=== PATIENT | female | born 1965 | race Hispanic/Latino ===

== ENCOUNTER 2019-02-07 12:46 | Inpatient (IN) | payer MEDICARE ==
[~2019-02-07] VITALS: Ht 165.1 cm; Wt 156.0 kg
[~2019-02-07 12:46] MED LIST: PANT40TA25 PO; SUCR1TAB28 PO
[2019-02-07 13:23] LABS: BASOPHILS % (AUTO) 0.5 % (0.0-5.0); HEMATOCRIT 35.5 % (36-48); LYMPHOCYTES % (AUTO) 28.3 % (21.0-51.0); MEAN CORPUSCULAR HEMOGLOBIN 30.8 pg (27.0-33.0); MEAN CORPUSCULAR VOLUME 90.4 fL (79-99); MONOCYTES % (AUTO) 4.4 % (3.0-13.0); NEUTROPHILS % (AUTO) 65.8 % (40.0-77.0); PLATELET COUNT (AUTO) 139 K/uL (130-400); RED BLOOD CELL COUNT(AUTO) 3.92 MIL/uL (4.00-5.50); RED CELL DISTRIBUTION WIDTH 14.2 % (11.0-15.5); WHITE BLOOD COUNT (AUTO) 7.5 K/uL (4.8-10.8)
[2019-02-07 13:36] LABS: CREATININE 0.7 mg/dL (0.5-1.5); POTASSIUM 4.5 mmol/L (3.5-5.1)
[2019-02-07 13:40] LABS: ALBUMIN 2.7 g/dL (3.5-5.0); BILIRUBIN,TOTAL 0.4 mg/dL (0.2-1.0); INR 0.96 (0.85-1.15); PARTIAL THROMBOPLASTIN TIME 27.3 SEC (26.3-35.5); PROTHROMBIN TIME 10.1 SEC (9.6-11.6); TOTAL PROTEIN, SERUM 6.9 g/dL (6.0-8.3)
[2019-02-07 13:55] LABS: BILIRUBIN,URINE Negative (NEGATIVE); COLOR,URINE Yellow (YELLOW); GLUCOSE, URINE (UA) Negative (NEGATIVE); KETONES,URINE Negative (NEGATIVE); LEUKOCYTE ESTERASE ,URINE Moderate (NEGATIVE); NITRATE,URINE Positive (NEGATIVE); OCCULT BLOOD,URINE Nonhemolyzed Trace (NEGATIVE); PH,URINE 6.5 (5.0-8.0); PROTEIN,URINE Negative (NEGATIVE)
[2019-02-07 13:58] LABS: APPEARANCE,URINE SLIGHTLY CLOUDY (CLEAR)
[2019-02-07 14:13] LABS: BACTERIA,URINE Moderate /HPF (None Seen)
[2019-02-07 14:15] LABS: RBC,URINE 0-1 /HPF (0-1)
[2019-02-07 16:29] LABS: AMPHET/METH SCREEN,URINE NEGATIVE (NEGATIVE); BARBITURATE SCREEN, URINE NEGATIVE (NEGATIVE); BENZODIAZEPINES SCREEN,URINE NEGATIVE (NEGATIVE); CANNABINOID SCREEN,URINE NEGATIVE (NEGATIVE); COCAINE SCREEN,URINE NEGATIVE (NEGATIVE); OPIATE SCREEN,URINE NEGATIVE (NEGATIVE); PHENCYCLIDINE SCREEN,URINE NEGATIVE (NEGATIVE)
[2019-02-07] MEDS ORDERED: CEFTRIAXONE SODIUM 1 GM ONE (16:52)
[2019-02-07 18:05] VITALS: BP 128/72
[2019-02-07] MEDS ORDERED: METF-444 PO (19:03)
[2019-02-07 19:10] LABS: HEMATOCRIT 32.4 % (36-48)
[2019-02-07] MEDS: PANTOPRAZOLE 40 MG/VIAL IVP SCH (19:51)
[2019-02-07 20:00] VITALS: BP 128/87
--- NOTE | 2019-02-07 20:07 | NUR ---
Paged Hospitalist on-call because pt has pain in the legs.
--- NOTE | 2019-02-07 20:12 | NUR ---
Spoke with Dr. Brown because pt has pain in the legs. Dr. Brown gave the order for 30mg IV toradol times one time dose.
--- NOTE | 2019-02-07 20:50 | NUR ---
Spoke with Dr. Mccarty Informed him that Dr. Brown had ordered toradol for the pt's pain in the legs. Stated to discontinue the toradol and instead put in the order for tylenol 1g q6h for PRN pain 1-5, tramadol 50mg q8h PRN pain 6-10, to start the NS at 100ml/hr for the pt.
[2019-02-07] MEDS ORDERED: KETOROLAC TROMETHAMINE 30MG/ML IM SCH (21:00)
[2019-02-07] MEDS ORDERED: ACETAMINOPHEN 325 MG TAB PO PRN (21:15)
[2019-02-07] MEDS: TRAMADOL HCL 50 MG TABLET PO PRN (22:13)
[2019-02-07] MEDS: SODIUM CHLORIDE 0.9% 1000ML 1,000 ML IV SCH (22:14)
[2019-02-08] VITALS (18 sets, daily range): BP systolic 119–166; BP diastolic 60–95
[2019-02-08 02:26] LABS: HEMATOCRIT 36.4 % (36-48)
[2019-02-08 05:51] LABS: MEAN CORPUSCULAR HEMOGLOBIN 30.4 pg (27.0-33.0); MEAN CORPUSCULAR HGB CONC 33.2 g/dL (32.0-36.0); MEAN CORPUSCULAR VOLUME 91.4 fL (79-99); PLATELET COUNT (AUTO) 189 K/uL (130-400); RED BLOOD CELL COUNT(AUTO) 4.05 MIL/uL (4.00-5.50); RED CELL DISTRIBUTION WIDTH 14.6 % (11.0-15.5); WHITE BLOOD COUNT (AUTO) 9.4 K/uL (4.8-10.8)
[2019-02-08 06:15] LABS: CREATININE 0.9 mg/dL (0.5-1.5); POTASSIUM 3.5 mmol/L (3.5-5.1)
[2019-02-08] MEDS: SODIUM CHLORIDE 0.9% 1000ML 1,000 ML IV SCH ×2 (06:36→17:29)
[2019-02-08 07:31] LABS: EOSINOPHILS % (MANUAL) 1 % (1-6); LYMPHOCYTES % (MANUAL) 28 % (22-44); MAN.DIFF COMMENT-IMPRESSION MANUAL DIFFERENTIAL; MONOCYTES % (MANUAL) 7 % (2-9); PLATELET MORPHOLOGY COMMENT ADEQUATE; REACTIVE LYMPHOCYTES 2 % (0-0); SEGMENTED NEUTROPHILS % 62 % (40-70)
[2019-02-08] MEDS: PANTOPRAZOLE 40 MG/VIAL IVP SCH ×2 (08:51→19:48)
[2019-02-08] MEDS: CEFTRIAXONE SODIUM 1 GM IVP SCH (08:51)
--- NOTE | 2019-02-08 09:50 | NUR ---
Pt.taken via hospital bed for EGD to be done by Dr. Pizano. Left in stable condition.
[2019-02-08] MEDS ORDERED: PROPOFOL 10 MG/ML 20ML VIAL IV ONE (13:15)
--- NOTE | 2019-02-08 14:10 | NUR ---
Pt. back in room s/p EGD with Dr. Pizano, findings: 1 non-bleeding duodenal ulcer, gastritis, biopsy done. Pt. to have a colonoscopy with MAC tomorrow. Pt. in stable condition, awake with no c/o. Dtr. in room with pt.
[2019-02-08] MEDS ORDERED: LACTULOSE 20 GM/30 ML UDCUP PO SCH (15:00)
[2019-02-08] MEDS: LACTULOSE 20 GM/30 ML UDCUP PO SCH (15:15)
--- NOTE | 2019-02-08 15:50 | NUR ---
cm note met with patient states is independent with adls and self care, ambulates per self. no dme. is in process of reapplying for provider services. states dc plan is back to same home setting at time of dc. pt drives. Addendum: 02/08/19 at 1553 by JANIS INTERIANO CM Amended: Links added.
[2019-02-08] MEDS ORDERED: MAGNESIUM CITRATE 296 ML SOLUTION PO ONE (16:00)
[2019-02-08] MEDS ORDERED: PEG 3350/NA SULF,BICARB,CL/KCL 4000 ML SOLN PO ONE (17:00)
[2019-02-08] MEDS: BISACODYL 5 MG TABLET.DR PO SCH (17:24)
[2019-02-08] MEDS: TRAMADOL HCL 50 MG TABLET PO PRN (19:49)
[2019-02-09] VITALS (21 sets, daily range): BP systolic 77–158; BP diastolic 35–89
[2019-02-09] MEDS: SODIUM CHLORIDE 0.9% 1000ML 1,000 ML IV SCH ×3 (03:15→23:15)
[2019-02-09] MEDS: PANTOPRAZOLE 40 MG/VIAL IVP SCH ×2 (08:33→21:47)
[2019-02-09] MEDS: CEFTRIAXONE SODIUM 1 GM IVP SCH (08:33)
[2019-02-09] MEDS: INSULIN HUMULIN R 100 UNIT/ML 3ML SQ SCH ×3 (11:30→21:00)
[2019-02-09] MEDS: LACTULOSE 20 GM/30 ML UDCUP PO SCH (14:08)
[2019-02-09] MEDS: BISACODYL 5 MG TABLET.DR PO SCH (18:00)
[2019-02-10] VITALS (12 sets, daily range): BP systolic 112–148; BP diastolic 61–85
[2019-02-10] MEDS ORDERED: ACETAMINOPHEN EXTRA STRENGTH 500 MG TABLET ONE (00:07)
[2019-02-10 05:46] LABS: BASOPHILS % (AUTO) 0.6 % (0.0-5.0); EOSINOPHILS % (AUTO) 1.9 % (0.0-8.0); HEMATOCRIT 32.3 % (36-48); LYMPHOCYTES % (AUTO) 40.1 % (21.0-51.0); MEAN CORPUSCULAR HEMOGLOBIN 30.5 pg (27.0-33.0); MEAN CORPUSCULAR HGB CONC 33.2 g/dL (32.0-36.0); MEAN CORPUSCULAR VOLUME 91.7 fL (79-99); MONOCYTES % (AUTO) 5.9 % (3.0-13.0); NEUTROPHILS % (AUTO) 51.5 % (40.0-77.0); PLATELET COUNT (AUTO) 152 K/uL (130-400); RED BLOOD CELL COUNT(AUTO) 3.52 MIL/uL (4.00-5.50); RED CELL DISTRIBUTION WIDTH 14.1 % (11.0-15.5); WHITE BLOOD COUNT (AUTO) 6.3 K/uL (4.8-10.8)
[2019-02-10 05:56] LABS: CREATININE 0.8 mg/dL (0.5-1.5); POTASSIUM 3.8 mmol/L (3.5-5.1)
[2019-02-10] MEDS: INSULIN HUMULIN R 100 UNIT/ML 3ML SQ SCH ×4 (07:05→21:00)
[2019-02-10] MEDS: LEVOFLOXACIN 500 MG/D5W 100 ML 100 ML IV SCH (09:47)
[2019-02-10] MEDS: PANTOPRAZOLE 40 MG/VIAL IVP SCH ×2 (09:47→21:54)
[2019-02-10] MEDS: SODIUM CHLORIDE 0.9% 1000ML 1,000 ML IV SCH ×2 (09:47→21:54)
[2019-02-10] MEDS ORDERED: PROPOFOL 10 MG/ML 20ML VIAL IV ONE ×2 (14:55)
[2019-02-10] MEDS: LACTULOSE 20 GM/30 ML UDCUP PO SCH (15:05)
[2019-02-10] MEDS: BISACODYL 5 MG TABLET.DR PO SCH (16:44)
[2019-02-11 04:19] VITALS: BP 127/78
[2019-02-11 04:35] LABS: BASOPHILS % (AUTO) 0.4 % (0.0-5.0); EOSINOPHILS % (AUTO) 1.9 % (0.0-8.0); HEMATOCRIT 33.3 % (36-48); LYMPHOCYTES % (AUTO) 34.8 % (21.0-51.0); MEAN CORPUSCULAR HEMOGLOBIN 31.4 pg (27.0-33.0); MEAN CORPUSCULAR HGB CONC 34.3 g/dL (32.0-36.0); MEAN CORPUSCULAR VOLUME 91.5 fL (79-99); MONOCYTES % (AUTO) 5.9 % (3.0-13.0); NUCLEATED RED BLOOD CELLS 0.1 % (0.0-0.19); PLATELET COUNT (AUTO) 138 K/uL (130-400); RED BLOOD CELL COUNT(AUTO) 3.64 MIL/uL (4.00-5.50); RED CELL DISTRIBUTION WIDTH 13.9 % (11.0-15.5); WHITE BLOOD COUNT (AUTO) 7.2 K/uL (4.8-10.8)
[2019-02-11 04:51] LABS: CREATININE 0.7 mg/dL (0.5-1.5); POTASSIUM 3.6 mmol/L (3.5-5.1)
[2019-02-11] MEDS: SODIUM CHLORIDE 0.9% 1000ML 1,000 ML IV SCH (05:40)
[2019-02-11] MEDS: INSULIN HUMULIN R 100 UNIT/ML 3ML SQ SCH (05:40)
[2019-02-11 08:00] VITALS: BP 128/63
[2019-02-11] MEDS ORDERED: PANTOPRAZOLE SODIUM 40 MG TABLET.DR PO SCH (09:00)
[2019-02-11] MEDS: LEVOFLOXACIN 500 MG/D5W 100 ML 100 ML IV SCH (09:17)
[2019-02-11] MEDS ORDERED: PANT40TA PO (09:20)
[2019-02-11] MEDS ORDERED: LEVO500T2 PO (09:22)
[2019-02-11 11:00] VITALS: BP 142/75
== END 2019-02-11 12:15 | disposition home or self-care (01) | DRG 377 ==
LOC: EDH 12:46 → EDHIP 16:10 → OBSVTOIN 16:10 → 3AH 18:13
PROVIDERS: ADMIT Family Medicine; ATTEND Family Medicine
PROC: 0DB48ZX Excision of Esophagogastric Junction, Via Natural or Artificial Opening Endoscopic, Diagnostic (ICD-10-PCS; 2019-02-08)
PROC: 0DB68ZX Excision of Stomach, Via Natural or Artificial Opening Endoscopic, Diagnostic (ICD-10-PCS; 2019-02-08)
PROC: 0DBA8ZX Excision of Jejunum, Via Natural or Artificial Opening Endoscopic, Diagnostic (ICD-10-PCS; 2019-02-08)
PROC: 0DJD8ZZ Inspection of Lower Intestinal Tract, Via Natural or Artificial Opening Endoscopic (ICD-10-PCS; 2019-02-09)
PROC: 0DJD8ZZ Inspection of Lower Intestinal Tract, Via Natural or Artificial Opening Endoscopic (ICD-10-PCS; principal; 2019-02-10)
DX: K29.01 Acute gastritis with bleeding (principal); E43 Unspecified severe protein-calorie malnutrition; Z68.43 Body mass index [BMI] 50.0-59.9, adult; N39.0 Urinary tract infection, site not specified; C18.9 Malignant neoplasm of colon, unspecified; D62 Acute posthemorrhagic anemia; K28.4 Chronic or unspecified gastrojejunal ulcer with hemorrhage; K57.31 Diverticulosis of large intestine without perforation or abscess with bleeding; K29.81 Duodenitis with bleeding; B96.20 Unspecified Escherichia coli [E. coli] as the cause of diseases classified elsewhere; E11.9 Type 2 diabetes mellitus without complications; K64.0 First degree hemorrhoids; K21.0 Gastro-esophageal reflux disease with esophagitis; E66.01 Morbid (severe) obesity due to excess calories; I10 Essential (primary) hypertension; Z88.0 Allergy status to penicillin; Z98.84 Bariatric surgery status; Z90.710 Acquired absence of both cervix and uterus; Z83.3 Family history of diabetes mellitus; Z82.49 Family history of ischemic heart disease and other diseases of the circulatory system; Z82.3 Family history of stroke; Z80.3 Family history of malignant neoplasm of breast
CPT/HCPCS: 36415; 43239; 45378; 80048; 80053; 80305; 81001; 82270; 82948; 83690; 85014; 85018; 85025; 85610; 85730; 86677; 86850; 86900; 86901; 87077; 87088; 87186; 87338; 88305; 99152; 99153; A4218; C9113; G0378; J0696; J1956; J2704; J7030

== ENCOUNTER 2019-06-24 18:24 | Emergency (ER) | payer OTHER, MEDICARE ==
[~2019-06-24 18:24] MED LIST changes: +LEVO500T2 PO; +METF-444 PO; +PANT40TA PO
[2019-06-24 19:01] LABS: APPEARANCE,URINE Turbid (CLEAR); BILIRUBIN,URINE Negative (NEGATIVE); COLOR,URINE Yellow (YELLOW); GLUCOSE, URINE (UA) Negative (NEGATIVE); KETONES,URINE Negative (NEGATIVE); LEUKOCYTE ESTERASE ,URINE Large (NEGATIVE); NITRATE,URINE Positive (NEGATIVE); OCCULT BLOOD,URINE Moderate (NEGATIVE); PROTEIN,URINE POS 1+ mg/dL (NEGATIVE)
[2019-06-24 19:14] LABS: BACTERIA,URINE Moderate /HPF (None Seen); MUCUS,URINE Moderate LPF (None Seen)
[2019-06-24] MEDS ORDERED: SODIUM CHLORIDE 0.9% 1000ML 1,000 ML IV ONE (19:24)
[2019-06-24] MEDS ORDERED: PHENAZOPYRIDINE HCL 200 MG TABLET ONE (19:25)
[2019-06-24 19:30] LABS: BASOPHILS % (AUTO) 0.4 % (0.0-5.0); EOSINOPHILS % (AUTO) 1.3 % (0.0-8.0); HEMATOCRIT 38.8 % (36-48); LYMPHOCYTES % (AUTO) 30.3 % (21.0-51.0); MEAN CORPUSCULAR HGB CONC 33.6 g/dL (32.0-36.0); MEAN CORPUSCULAR VOLUME 89.2 fL (79-99); PLATELET COUNT (AUTO) 160 K/uL (130-400); RED BLOOD CELL COUNT(AUTO) 4.35 MIL/uL (4.00-5.50); RED CELL DISTRIBUTION WIDTH 15.7 % (11.0-15.5); WHITE BLOOD COUNT (AUTO) 8.4 K/uL (4.8-10.8)
[2019-06-24 19:38] LABS: CREATININE 1.1 mg/dL (0.5-1.5); POTASSIUM 3.6 mmol/L (3.5-5.1)
[2019-06-24 19:43] LABS: ALBUMIN 2.9 g/dL (3.5-5.0); BILIRUBIN,DIRECT 0.1 mg/dL (0.0-0.3); BILIRUBIN,TOTAL 0.3 mg/dL (0.2-1.0); TOTAL PROTEIN, SERUM 7.7 g/dL (6.0-8.3)
== END 2019-06-24 21:07 | disposition home or self-care (01) ==
LOC: EDH 18:24
DX: N30.00 Acute cystitis without hematuria (principal); E11.9 Type 2 diabetes mellitus without complications; I10 Essential (primary) hypertension; E66.01 Morbid (severe) obesity due to excess calories; Z90.710 Acquired absence of both cervix and uterus; Z90.49 Acquired absence of other specified parts of digestive tract; Z98.890 Other specified postprocedural states; Z98.84 Bariatric surgery status; Z68.43 Body mass index [BMI] 50.0-59.9, adult
CPT/HCPCS: 36415; 80048; 80076; 81001; 85025; 87040; 87077; 87088; 87186; 99284; J7030

== ENCOUNTER 2019-10-26 00:11 | Emergency (ER) | payer OTHER, MEDICARE ==
[2019-10-26] MEDS ORDERED: ALBUTEROL SULFATE 0.083% 2.5 MG/3 ML INH IH ONE ×3 (01:02→03:10)
[2019-10-26 01:13] LABS: BASOPHILS % (AUTO) 0.2 % (0.0-5.0); EOSINOPHILS % (AUTO) 1.7 % (0.0-8.0); HEMATOCRIT 41.5 % (36-48); LYMPHOCYTES % (AUTO) 47.9 % (21.0-51.0); MEAN CORPUSCULAR HEMOGLOBIN 29.2 pg (27.0-33.0); MEAN CORPUSCULAR HGB CONC 31.3 g/dL (32.0-36.0); MEAN CORPUSCULAR VOLUME 93.3 fL (79-99); MONOCYTES % (AUTO) 11.4 % (3.0-13.0); NEUTROPHILS % (AUTO) 38.4 % (40.0-77.0); PLATELET COUNT (AUTO) 135 K/uL (130-400); RED BLOOD CELL COUNT(AUTO) 4.45 MIL/uL (4.00-5.50); RED CELL DISTRIBUTION WIDTH 13.9 % (11.0-15.5); WHITE BLOOD COUNT (AUTO) 4.7 K/uL (4.8-10.8)
[2019-10-26] MEDS ORDERED: MAG HYDROX/AL HYDROX/SIMETH ES 30 ML SUSP UDCUP ONE (01:13)
[2019-10-26] MEDS ORDERED: LIDOCAINE HCL 2% VISCOUS 15 ML UDCUP ONE (01:13)
[2019-10-26 01:19] LABS: CREATININE 1.1 mg/dL (0.5-1.5); POTASSIUM 3.9 mmol/L (3.5-5.1)
[2019-10-26 01:23] LABS: ALBUMIN 2.5 g/dL (3.5-5.0); BILIRUBIN,TOTAL 0.2 mg/dL (0.2-1.0); PARTIAL THROMBOPLASTIN TIME 28.7 SEC (26.3-35.5); PROTHROMBIN TIME 10.5 SEC (9.6-11.6); TOTAL PROTEIN, SERUM 7.1 g/dL (6.0-8.3)
[2019-10-26] MEDS ORDERED: ACETAMINOPHEN 325 MG TAB ONE (01:48)
[2019-10-26] MEDS ORDERED: ACETAMINOPHEN EXTRA STRENGTH 500 MG TABLET ONE (01:48)
[2019-10-26] MEDS ORDERED: PREDNISONE 20 MG TABLET ONE (01:48)
[2019-10-26] MEDS ORDERED: KETOROLAC TROMETHAMINE 30MG/ML ONE (02:36)
[2019-10-26] MEDS ORDERED: OSELTAMIVIR PHOSPHATE 75 MG CAP ONE (03:47)
== END 2019-10-26 04:14 | disposition home or self-care (01) ==
LOC: EDH 00:11
DX: J11.1 Influenza due to unidentified influenza virus with other respiratory manifestations (principal); J45.901 Unspecified asthma with (acute) exacerbation; E11.9 Type 2 diabetes mellitus without complications; I10 Essential (primary) hypertension; Z90.710 Acquired absence of both cervix and uterus; Z90.49 Acquired absence of other specified parts of digestive tract; Z98.890 Other specified postprocedural states; Z88.0 Allergy status to penicillin
CPT/HCPCS: 36415; 71045; 80053; 84484; 85025; 85610; 85730; 87804 ×2; 93005; 94640 ×3; 96361; 96374; 99285; J1885

== ENCOUNTER 2021-03-14 16:11 | Emergency (ER) | payer OTHER, MEDICARE ==
[~2021-03-14] VITALS: Ht 165.1 cm; Wt 181.4 kg
[~2021-03-14 16:11] MED LIST changes: -PANT40TA25 PO; +PANT40TA55 PO
[2021-03-14] MEDS ORDERED: ONDANSETRON HCL 4 MG/2 ML VIAL IVP SCH (17:00)
[2021-03-14] MEDS ORDERED: FAMOTIDINE/PF 20 MG/2 ML VIAL IV SCH (17:00)
[2021-03-14] MEDS ORDERED: MAG HYDROX/AL HYDROX/SIMETH ES 30 ML SUSP UDCUP PO SCH (17:00)
[2021-03-14] MEDS ORDERED: LIDOCAINE HCL 2% VISCOUS 15 ML UDCUP PO SCH (17:00)
[2021-03-14 17:31] LABS: HEMATOCRIT 37.4 % (36-48); MEAN CORPUSCULAR HEMOGLOBIN 30.9 pg (27.0-33.0); MEAN CORPUSCULAR HGB CONC 32.9 g/dL (32.0-36.0); RED BLOOD CELL COUNT(AUTO) 3.98 MIL/uL (4.00-5.50); RED CELL DISTRIBUTION WIDTH 13.3 % (11.0-15.5); WHITE BLOOD COUNT (AUTO) 8.4 K/uL (4.8-10.8)
[2021-03-14 17:42] LABS: CREATININE 0.8 mg/dL (0.5-1.5); POTASSIUM 4.1 mmol/L (3.5-5.1)
[2021-03-14 17:47] LABS: ALBUMIN 2.8 g/dL (3.5-5.0); BILIRUBIN,TOTAL 0.2 mg/dL (0.2-1.0); TOTAL PROTEIN, SERUM 7.2 g/dL (6.0-8.3)
[2021-03-14 18:45] VITALS: BP 139/64
[2021-03-14 18:54] VITALS: BP 153/80
[2021-03-14 18:57] VITALS: BP 150/80
[2021-03-14 18:58] VITALS: BP 152/87
[2021-03-14 19:05] VITALS: BP 135/86
[2021-03-14] MEDS ORDERED: FAMO10VI2 IV (20:24)
[2021-03-14] MEDS ORDERED: DICY20TA2 PO (20:24)
[2021-03-14 20:25] VITALS: BP 139/86
== END 2021-03-14 20:37 | disposition home or self-care (01) ==
LOC: EDH 16:11
DX: K29.70 Gastritis, unspecified, without bleeding (principal); R73.9 Hyperglycemia, unspecified; E66.01 Morbid (severe) obesity due to excess calories; Z88.0 Allergy status to penicillin; Z79.899 Other long term (current) drug therapy; Z68.44 Body mass index [BMI] 60.0-69.9, adult
CPT/HCPCS: 36415; 74176; 80053; 83690; 85027; 96374; 96375; 99284; J2405; J3490

== ENCOUNTER 2021-03-21 08:40 | Day surgery (SDC) | payer OTHER, MEDICARE ==
[~2021-03-21] VITALS: Ht 165.1 cm; Wt 179.6 kg
[2021-03-21] VITALS (8 sets, daily range): BP systolic 95–135; BP diastolic 49–88
[~2021-03-21 08:40] MED LIST changes: -LEVO500T2 PO; -METF-444 PO; -PANT40TA PO; -PANT40TA55 PO; +SODIUM CHLORIDE 0.9% 1000ML 1,000 ML IV ONE; -SUCR1TAB28 PO
[2021-03-21] MEDS ORDERED: PROPOFOL 10 MG/ML 20ML VIAL IV ONE (10:16)
== END 2021-03-21 11:36 | disposition home or self-care (01) ==
LOC: ENDO 08:40 → DAH 08:40 → ENDO 11:36
PROVIDERS: ATTEND Internal Medicine Gastroenterology
DX: K92.1 Melena (principal); K52.9 Noninfective gastroenteritis and colitis, unspecified; K21.9 Gastro-esophageal reflux disease without esophagitis; Z20.822 Contact with and (suspected) exposure to COVID-19; K57.30 Diverticulosis of large intestine without perforation or abscess without bleeding; K31.89 Other diseases of stomach and duodenum; K22.8 Other specified diseases of esophagus; K63.89 Other specified diseases of intestine; I10 Essential (primary) hypertension; E11.51 Type 2 diabetes mellitus with diabetic peripheral angiopathy without gangrene; D64.9 Anemia, unspecified; E66.01 Morbid (severe) obesity due to excess calories; M19.90 Unspecified osteoarthritis, unspecified site; Z79.899 Other long term (current) drug therapy; Z88.0 Allergy status to penicillin; Z79.84 Long term (current) use of oral hypoglycemic drugs; Z98.890 Other specified postprocedural states; Z90.89 Acquired absence of other organs; Z90.710 Acquired absence of both cervix and uterus; Z90.49 Acquired absence of other specified parts of digestive tract; Z98.891 History of uterine scar from previous surgery; Z72.89 Other problems related to lifestyle; Z98.84 Bariatric surgery status; Z68.44 Body mass index [BMI] 60.0-69.9, adult
CPT/HCPCS: 43239; 45380; 82948 ×2; 87635; A4215 ×2; A4221; A4222; A4223; A4606; A4620; A4657 ×2; A4663; C9803; J2704; J7030

== ENCOUNTER 2021-08-12 17:24 | Emergency (ER) | payer OTHER, MEDICARE ==
[~2021-08-12] VITALS: Ht 165.1 cm; Wt 181.4 kg
[2021-08-12] MEDS ORDERED: HYDROCODONE/ACETAMINOPHEN 10/325 MG TAB PO ONE (18:00)
[2021-08-12] MEDS ORDERED: ACET-2247 PO (18:19)
[2021-08-12] MEDS ORDERED: LIDOP TP (18:19)
[2021-08-12] MEDS ORDERED: CEPHALEXIN 500 MG CAPSULE PO ONE (18:30)
[2021-08-12] MEDS ORDERED: CLINDAMYCIN 150 MG CAP PO ONE (18:30)
[2021-08-12 18:54] VITALS: BP 141/79
== END 2021-08-12 18:50 | disposition home or self-care (01) ==
LOC: EDH 17:24
DX: S80.11XA Contusion of right lower leg, initial encounter (principal); M79.661 Pain in right lower leg; L03.115 Cellulitis of right lower limb; E78.00 Pure hypercholesterolemia, unspecified; E66.01 Morbid (severe) obesity due to excess calories; Z88.0 Allergy status to penicillin; Z98.84 Bariatric surgery status; Z90.49 Acquired absence of other specified parts of digestive tract; Z68.44 Body mass index [BMI] 60.0-69.9, adult; W01.198A Fall on same level from slipping, tripping and stumbling with subsequent striking against other object, initial encounter; Y93.89 Activity, other specified; Y92.89 Other specified places as the place of occurrence of the external cause; Y99.8 Other external cause status
CPT/HCPCS: 76882

== ENCOUNTER 2022-11-20 16:51 | Emergency (ER) | payer OTHER, MEDICARE ==
[~2022-11-20] VITALS: Ht 165.1 cm; Wt 193.2 kg
[~2022-11-20 16:51] MED LIST changes: +ACET-2247 PO; +LIDOP TP; -SODIUM CHLORIDE 0.9% 1000ML 1,000 ML IV ONE
[2022-11-20 17:41] LABS: BASOPHILS % (AUTO) 0.3 % (0.0-5.0); EOSINOPHILS % (AUTO) 1.4 % (0.0-8.0); HEMATOCRIT 44.6 % (36-48); LYMPHOCYTES % (AUTO) 31.6 % (21.0-51.0); MEAN CORPUSCULAR HEMOGLOBIN 30.6 pg (27.0-33.0); MEAN CORPUSCULAR VOLUME 92.9 fL (79-99); MONOCYTES % (AUTO) 6.1 % (3.0-13.0); NEUTROPHILS % (AUTO) 60.2 % (40.0-77.0); PLATELET COUNT (AUTO) 148 K/uL (130-400); RED CELL DISTRIBUTION WIDTH 13.2 % (11.0-15.5); WHITE BLOOD COUNT (AUTO) 7.4 K/uL (4.8-10.8)
[2022-11-20 17:52] LABS: POTASSIUM 4.2 mmol/L (3.5-5.1)
[2022-11-20 17:59] LABS: APPEARANCE,URINE CLOUDY (CLEAR); BILIRUBIN,URINE NEGATIVE (NEGATIVE); COLOR,URINE YELLOW (YELLOW); GLUCOSE, URINE (UA) >=1000 mg/dL (NEGATIVE); KETONES,URINE 5 mg/dL (NEGATIVE); LEUKOCYTE ESTERASE ,URINE NEGATIVE Leu/uL (NEGATIVE); NITRATE,URINE NEGATIVE (NEGATIVE); OCCULT BLOOD,URINE NEGATIVE (NEGATIVE); PH,URINE 5.5 (5.0-8.0); PROTEIN,URINE 30 mg/dL (NEGATIVE); UROBILINOGEN,URINE 0.2 mg/dL (0.2-1.0)
[2022-11-20 17:59] LABS: ALBUMIN 2.8 g/dL (3.5-5.0); TOTAL PROTEIN, SERUM 7.5 g/dL (6.0-8.3)
[2022-11-20] MEDS ORDERED: 0.9%NACL 1000ML 2,000 ML IV ONE (18:00)
[2022-11-20 18:05] LABS: BACTERIA,URINE FEW /HPF (None Seen); MUCUS,URINE MOD LPF (None Seen); RBC,URINE 26-50 /HPF (0-1); SQUAMOUS EPITHELIAL CELL,UR MOD /HPF (0-2); YEAST,URINE BUDDING MOD /HPF (None Seen)
[2022-11-20 18:27] LABS: ABG BASE EXCESS 1.9 mmol/L (-2.0-3.0); ABG HCO3 27.1 mmol/L (21.0-28.0); ABG OXYGEN SATURATION 93.6 % (95.0-99.0); ABG PCO2 44 mmHg (32-45)
[2022-11-20] MEDS ORDERED: MAG/ALUM/SIMETH 30 ML UDCUP PO ONE (18:30)
[2022-11-20] MEDS ORDERED: LIDOCAINE HCL 2% VISCOUS 15 ML UDCUP PO ONE (18:30)
[2022-11-20] MEDS ORDERED: FAMO20TA8 PO (20:26)
[2022-11-20] MEDS ORDERED: ONDA4TAB10 PO (20:26)
[2022-11-20 20:40] VITALS: BP 148/80
== END 2022-11-20 20:51 | disposition home or self-care (01) ==
LOC: EDH 16:51
DX: R07.89 Other chest pain (principal); K29.70 Gastritis, unspecified, without bleeding; R11.2 Nausea with vomiting, unspecified; E11.9 Type 2 diabetes mellitus without complications; E78.00 Pure hypercholesterolemia, unspecified; Z88.0 Allergy status to penicillin; Z90.49 Acquired absence of other specified parts of digestive tract; Z98.890 Other specified postprocedural states; Z90.710 Acquired absence of both cervix and uterus
CPT/HCPCS: 99285; 96360; 71045; 96361; 82947; 84484; 80053; 82803; 85025; 83605 ×2; 82010; 81001; 36415; 93005; 36600; 82948; 85018; 84132; 82435; 84295; J7030

== ENCOUNTER → 2023-05-28 | Outpatient (CLI) | payer MEDICARE, OTHER ==
[~2023-05-28] MED LIST changes: +FAMO20TA8 PO; +ONDA4TAB10 PO
== END | disposition home or self-care (01) ==
LOC: RAH 11:36
PROVIDERS: ATTEND Internal Medicine
DX: Z12.31 Encounter for screening mammogram for malignant neoplasm of breast (principal)
CPT/HCPCS: 77067

== ENCOUNTER → 2023-06-24 | Outpatient (CLI) | payer OTHER | END | disposition home or self-care (01) | LOC: RAH 09:47 | PROVIDERS: ATTEND Internal Medicine | DX: R94.5 Abnormal results of liver function studies (principal); N28.1 Cyst of kidney, acquired | CPT/HCPCS: 76705 ==

== ENCOUNTER → 2023-08-13 | Outpatient (CLI) | payer OTHER ==
[~2023-08-13] MED LIST changes: +IOHEXOL-350 75 ML VIAL IV ONE
== END | disposition home or self-care (01) ==
LOC: RAH 10:14
PROVIDERS: ATTEND Internal Medicine
DX: N28.1 Cyst of kidney, acquired (principal); M17.12 Unilateral primary osteoarthritis, left knee; D17.71 Benign lipomatous neoplasm of kidney; M25.562 Pain in left knee; Z90.49 Acquired absence of other specified parts of digestive tract; Z98.890 Other specified postprocedural states
CPT/HCPCS: 74177; 73562; Q9967

== ENCOUNTER → 2024-03-16 | Outpatient (CLI) | payer OTHER, MEDICARE ==
[~2024-03-16] MED LIST changes: -IOHEXOL-350 75 ML VIAL IV ONE; +ONDA-243 PO; -ONDA4TAB10 PO
[2024-03-16 10:37] LABS: CREATININE 0.8 mg/dL (0.5-1.0)
== END | disposition home or self-care (01) ==
LOC: LAB 09:56
PROVIDERS: ATTEND Urology
DX: N28.9 Disorder of kidney and ureter, unspecified (principal)
CPT/HCPCS: 36415; 82565; 84520

== ENCOUNTER 2024-03-17 06:04 | Day surgery (SDC) | payer OTHER, MEDICARE ==
[~2024-03-17] VITALS: Ht 165.1 cm; Wt 93.0 kg
[2024-03-17] VITALS (10 sets, daily range): BP systolic 117–149; BP diastolic 56–78; PULSE 56–67; RESP 15–58
[2024-03-17] MEDS: 0.9%NACL 1000ML 1,000 ML IV ONE (07:26)
[2024-03-17] MEDS ORDERED: LIDOCAINE PF 100MG/5ML (2%) SYRINGE 5ML ONE (07:45)
[2024-03-17] MEDS ORDERED: MIDAZOLAM HCL 1 MG/ML 2ML VIAL ONE (07:45)
[2024-03-17] MEDS ORDERED: PROPOFOL 10 MG/ML 20ML VIAL IV ONE (07:45)
[2024-03-17] MEDS: ONDANSETRON 4MG INJ ONE (08:32)
== END 2024-03-17 09:15 | disposition home or self-care (01) ==
LOC: DAH 06:04
PROVIDERS: ATTEND Surgery
DX: K21.00 Gastro-esophageal reflux disease with esophagitis, without bleeding (principal); K44.9 Diaphragmatic hernia without obstruction or gangrene; K91.1 Postgastric surgery syndromes; I10 Essential (primary) hypertension; E11.51 Type 2 diabetes mellitus with diabetic peripheral angiopathy without gangrene; E66.01 Morbid (severe) obesity due to excess calories; K76.0 Fatty (change of) liver, not elsewhere classified; M15.9 Polyosteoarthritis, unspecified; Z90.89 Acquired absence of other organs; Z82.49 Family history of ischemic heart disease and other diseases of the circulatory system; Z68.43 Body mass index [BMI] 50.0-59.9, adult; Z98.84 Bariatric surgery status; Z90.49 Acquired absence of other specified parts of digestive tract; Z98.890 Other specified postprocedural states; Z90.710 Acquired absence of both cervix and uterus
CPT/HCPCS: 43239; 82948; J7030; J2001; J2704; J2405; J2250; J3490

== ENCOUNTER → 2024-04-14 | Outpatient (CLI) | payer OTHER, MEDICARE ==
[~2024-04-14] MED LIST changes: +IOHEXOL-350 75 ML VIAL IV ONE
== END | disposition home or self-care (01) ==
LOC: RAH 08:30
PROVIDERS: ATTEND Urology
DX: N28.9 Disorder of kidney and ureter, unspecified (principal)
CPT/HCPCS: 74170; Q9967

== ENCOUNTER → 2024-04-21 | Outpatient (CLI) | payer OTHER, MEDICARE ==
[~2024-04-21] MED LIST changes: -IOHEXOL-350 75 ML VIAL IV ONE
== END | disposition home or self-care (01) ==
LOC: RAH 09:00
PROVIDERS: ATTEND Student in an Organized Health Care Education/Training Program
DX: K21.00 Gastro-esophageal reflux disease with esophagitis, without bleeding (principal); K44.9 Diaphragmatic hernia without obstruction or gangrene; K91.1 Postgastric surgery syndromes; Z90.49 Acquired absence of other specified parts of digestive tract
CPT/HCPCS: 74240; Q9958

== ENCOUNTER → 2024-04-24 | Outpatient (CLI) | payer OTHER, MEDICARE | END | disposition home or self-care (01) | LOC: SHCH 13:06 | PROVIDERS: ATTEND Internal Medicine Cardiovascular Disease | DX: I87.2 Venous insufficiency (chronic) (peripheral) (principal); R60.0 Localized edema | CPT/HCPCS: 93970 ==

== ENCOUNTER → 2024-08-13 | Outpatient (CLI) | payer OTHER, MEDICARE ==
[2024-08-13 12:18] LABS: BASOPHILS # (AUTO) 0.02 K/uL (0.00-0.20); BASOPHILS % (AUTO) 0.3 % (0.0-5.0); EOSINOPHILS # (AUTO) 0.09 K/uL (0.00-0.70); EOSINOPHILS % (AUTO) 1.1 % (0.0-8.0); HEMATOCRIT 43.2 % (36-48); IMMATURE GRANULOCYTE ABSOLUTE 0.02 K/uL (0-1); LYMPHOCYTES # (AUTO) 2.5 K/uL (1.0-4.8); LYMPHOCYTES % (AUTO) 31.3 % (21.0-51.0); MEAN CORPUSCULAR HEMOGLOBIN 30.4 pg (27.0-33.0); MEAN CORPUSCULAR HGB CONC 32.4 g/dL (32.0-36.0); MEAN CORPUSCULAR VOLUME 93.7 fL (79-99); MONOCYTES # (AUTO) 0.5 K/uL (0.1-1.0); MONOCYTES % (AUTO) 5.7 % (3.0-13.0); NEUTROPHILS # (AUTO) 4.9 K/uL (1.8-7.7); NEUTROPHILS % (AUTO) 61.3 % (40.0-77.0); PLATELET COUNT (AUTO) 148 K/uL (130-400); RED BLOOD CELL COUNT(AUTO) 4.61 MIL/uL (4.00-5.50); RED CELL DISTRIBUTION WIDTH 12.9 % (11.0-15.5)
[2024-08-13 12:25] LABS: INR 1.01 (0.85-1.15); PROTHROMBIN TIME 10.9 SEC (9.6-11.6)
[2024-08-13 12:26] LABS: PARTIAL THROMBOPLASTIN TIME 27.9 SEC (26.3-35.5)
[2024-08-13 12:41] LABS: CREATININE 0.9 mg/dL (0.5-1.0)
== END | disposition home or self-care (01) ==
LOC: LAB 10:01
PROVIDERS: ATTEND Internal Medicine Cardiovascular Disease
DX: Z01.812 Encounter for preprocedural laboratory examination (principal); I87.2 Venous insufficiency (chronic) (peripheral); R60.0 Localized edema; Z86.2 Personal history of diseases of the blood and blood-forming organs and certain disorders involving the immune mechanism; Z79.899 Other long term (current) drug therapy
CPT/HCPCS: 36415; 80048; 85025; 85610; 85730

== ENCOUNTER → 2025-07-01 | Outpatient (CLI) | payer OTHER, MEDICARE ==
[~2025-07-01] MED LIST changes: +ATOR10 PO; +CELE-146 PO; +CLOP75TA32 PO; +METF-446 PO; +PANT40TA54 PO; +PREG100C56 PO
== END | disposition home or self-care (01) ==
LOC: RAH 11:38
PROVIDERS: ATTEND Internal Medicine
DX: Z12.31 Encounter for screening mammogram for malignant neoplasm of breast (principal)
CPT/HCPCS: 77067

== ENCOUNTER 2025-07-21 11:00 | Inpatient (IN) | payer OTHER, MEDICARE ==
[~2025-07-21] VITALS: Ht 165.1 cm; Wt 142.2 kg
[~2025-07-21 11:00] MED LIST changes: -ACET-2247 PO; -CELE-146 PO; -CLOP75TA32 PO; -FAMO20TA8 PO; -LIDOP TP; -ONDA-243 PO; -PREG100C56 PO
--- NOTE | 2025-07-21 12:03 | EKG ---
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
[2025-07-21 12:11] LABS: IMMATURE GRANULOCYTE ABSOLUTE 0.02 K/uL (0-1); NUCLEATED RED BLOOD CELLS 0.0 % (0.0-0.19); PLATELET COUNT (AUTO) 138 K/uL (130-400); RED BLOOD CELL COUNT(AUTO) 4.43 MIL/uL (4.00-5.50); RED CELL DISTRIBUTION WIDTH 13.7 % (11.0-15.5); WHITE BLOOD COUNT (AUTO) 6.6 K/uL (4.8-10.8)
[2025-07-21 12:23] LABS: CREATININE 0.6 mg/dL (0.5-1.0); GLOMERULAR FILTR. RATE CALC 104.0 mL/min (>90); GLUCOSE,RANDOM 99.0 mg/dL (70-105); SODIUM SERUM 144.0 mmol/L (136-145); UREA NITROGEN, BLOOD 21.0 mg/dL (7-18)
[2025-07-21 12:25] LABS: INR 0.97 (0.85-1.15)
[2025-07-21 12:28] LABS: ASPARTATE AMINOTRANSFERASE 28.0 U/L (10-37); TOTAL PROTEIN, SERUM 7.2 g/dL (6.0-8.3)
[2025-07-21 12:58] VITALS: BP 125/70; PULSE 56; RESP 18; TEMP 97.8
--- NOTE | 2025-07-21 13:35 | NUR ---
REPORT REPORTED EKG TO DR ROY. OK TO PROCEED
[2025-07-21] MEDS ORDERED: MAGN400T40 PO (13:45)
[2025-07-21] MEDS ORDERED: MVI PO (13:45)
[2025-07-21] MEDS ORDERED: CHOL500045 PO (13:45)
[2025-07-21] MEDS ORDERED: VERA120T92 PO (13:45)
[2025-07-21] MEDS ORDERED: VITA-395 PO (13:45)
[2025-07-21] MEDS ORDERED: DRON400T7 PO (13:45)
[2025-07-21] MEDS ORDERED: APIX5TAB PO (13:45)
[2025-07-21] MEDS ORDERED: ONDA-245 PO (13:51)
[2025-07-21] MEDS ORDERED: SEMA2PEN SQ (13:51)
[2025-07-21] MEDS ORDERED: VITA800012 PO (13:51)
[2025-07-21] MEDS ORDERED: POTASSIUM PO (13:51)
[2025-07-21] MEDS ORDERED: ASPI-1443 PO (13:51)
[2025-07-21] MEDS ORDERED: GABA300C PO (13:51)
--- NOTE | 2025-07-21 15:35 | NUR ---
report dr gustafson/nilda informed pt stopped taking eliquis on 07/14/25. ok to proceed. also made aware h&p outdated. as per nilda cabezas will fill out short form in am
[2025-07-22] VITALS (21 sets, daily range): BP systolic 108–172; BP diastolic 37–79; PULSE 68–77; RESP 16–22; TEMP 76–97.8; O2SAT 95–98
[2025-07-22] MEDS: CLINDAMYCIN 900MG/6ML INJ IJ ONE
[2025-07-22] MEDS ORDERED: MIDAZOLAM HCL 1 MG/ML 2ML VIAL ONE (09:06)
[2025-07-22] MEDS ORDERED: SUCCINYLCHOLINE CHLORIDE 20 MG/ML 10 ML VIAL ONE (09:07)
[2025-07-22] MEDS ORDERED: LIDOCAINE PF 100MG/5ML (2%) SYRINGE 5ML ONE (12:22)
[2025-07-22] MEDS ORDERED: PROCHLORPERAZINE 10MG/2ML INJ IV PRN (16:30)
--- NOTE | 2025-07-22 16:37 | PN ---
GENERAL SURGERY PROGRESS NOTE Date/Time Patient Seen: [ 07/22/2025 at 4:35 p.m.] Problem List: [ ] Interval History: [Postop day 0. Pain tolerable with p.r.n. medication. ] Physical Examination: GENERAL: [No acute distress.] ABD: [Incisions clean, dry and intact, Dermabond in place Vital Signs (last 8hr) Date Time Temp Pulse Resp B/P (MAP) Pulse Ox O2 Delivery O2 Flow Rate FiO2 07/22/25 09:50 97.3 77 17 167/79 97 Room Air 21 Laboratory: [ ] Hematology Labs: Test 07/21/25 11:45 Range/Units White Blood Count 6.6 4.8-10.8 K/uL Red Blood Count 4.43 4.00-5.50 MIL/uL Hemoglobin 13.4 12.0-16.0 g/dL Hematocrit 42.4 36-48 % Mean Corpuscular Volume 95.7 79-99 fL Mean Corpuscular Hemoglobin 30.2 27.0-33.0 pg Mean Corpuscular Hemoglobin Concent 31.6 L 32.0-36.0 g/dL Red Cell Distribution Width 13.7 11.0-15.5 % Platelet Count 138 130-400 K/uL Mean Platelet Volume 11.9 H 7.5-10.5 fL Immature Granulocyte % (Auto) 0.3 0-1 % Neutrophils (%) (Auto) 58.6 40.0-77.0 % Lymphocytes (%) (Auto) 33.8 21.0-51.0 % Monocytes (%) (Auto) 5.3 3.0-13.0 % Eosinophils (%) (Auto) 1.7 0.0-8.0 % Basophils (%) (Auto) 0.3 0.0-5.0 % Neutrophils # (Auto) 3.9 1.8-7.7 K/uL Lymphocytes # (Auto) 2.2 1.0-4.8 K/uL Monocytes # (Auto) 0.4 0.1-1.0 K/uL Eosinophils # (Auto) 0.11 0.00-0.70 K/uL Basophils # (Auto) 0.02 0.00-0.20 K/uL Absolute Immature Granulocyte (auto 0.02 0-1 K/uL Nucleated Red Blood Cells 0.0 0.0-0.19 % Chemistry Labs: Test 07/22/25 09:43 07/21/25 11:45 Range/Units Whole Blood Glucose 113 H 70-110 MG/DL Sodium Level 144 136-145 mmol/L Potassium Level 4.4 3.5-5.1 mmol/L Chloride Level 107 101-111 mmol/L Carbon Dioxide Level 30 21-32 mmol/L Blood Urea Nitrogen 21 H 7-18 mg/dL Creatinine 0.6 0.5-1.0 mg/dL Glomerular Filtration Rate Calc 104 >90 mL/min Random Glucose 99 70-105 mg/dL Total Calcium 8.6 8.5-10.1 mg/dL Total Bilirubin 0.4 0.2-1.0 mg/dL Aspartate Amino Transf (AST/SGOT) 28 10-37 U/L Alanine Aminotransferase (ALT/SGPT) 42 12-78 U/L Alkaline Phosphatase 132 50-136 U/L Total Protein 7.2 6.0-8.3 g/dL Albumin 3.1 L 3.5-5.0 g/dL Coagulation Labs: Test 07/21/25 11:45 Range/Units Prothrombin Time 10.3 9.6-11.6 SEC Prothromb Time International Ratio 0.97 0.85-1.15 Activated Partial Thromboplast Time 27.1 26.3-35.5 SEC Diagnostics / Radiology: [Copy/Paste Echos/Imaging Report here] Impression and Plan: [ Plan is for discharge home in the next day or two as long as patient tolerating p.o., ambulatory and pain under control. Discussed with patient and family. They understand and agree. We will order upper GI with small-bowel follow-through for tomorrow morning, upper GI for location of gastrogastric fistula opening and small-bowel follow-through because of history of internal hernia.] GABRIELLA LEHMAN PAC Jul 22, 2025 16:37
--- NOTE | 2025-07-22 16:53 | OP ---
Operative Note: DATE OF PROCEDURE: 07/22/25 SURGEON: MAGUI LEHMAN MD SOIL EXPERT: Jose Alberto Lehman MD p.a. C ANESTHESIA: General and local ANESTHESIOLOGIST/NOTE SPECIALIST: [facility] [place] anesthesia team PREOPERATIVE DIAGNOSIS: Possible hiatal hernia, previous history of gastric bypass by outside surgeon, gastroesophageal reflux, dyspepsia, abdominal pain-generalized POSTOPERATIVE DIAGNOSIS: Extensive intra-abdominal adhesions and scarring from prior operations, foreign material in the area of gastroesophageal junction, internal hernia, discovery of gastrogastric fistula, nodular cirrhotic appearing liver requiring biopsy for further diagnosis, abnormal white plaques on the omentum requiring biopsy for further diagnosis SYNOPSIS: Extensive lysis of adhesions, reduction of internal hernia, removal of foreign material, and discovery of gastrogastric fistula undertaken without immediate complication. Due to the length of time under anesthesia in the patient's history of atrial fibrillation and other moderate to high risks for complications the decision was made to forego further surgical intervention to address gastrogastric fistula at this surgery. PROCEDURE: 1. Diagnostic lap, robotic assisted with the extensive lysis of adhesions gr eater than 2 hours 2. Core needle liver biopsy 3. Excisional biopsy of omental plaques 4. Removal of foreign body in the area of the GE junction sent for pathologic inspection 5. Reduction of internal hernia 6. Diagnostic EGD with the discovery of gastrogastric fistula high complexity modifier due to length of time and complexity of the patient's postoperative anatomy ESTIMATED BLOOD LOSS: Minimal, less than 30 cc INDICATIONS: As above DESCRIPTION OF PROCEDURE: After standard precautions and preparations were undertaken a Veress needle and optical trocar were used to enter the abdominal cavity. All other instruments were placed under direct vision. The robotic system was docked in the standard fashion. We began by taking a cursory look around the abdominal cavity and noticed that the patient's liver was nodular and irregular consistent with early cirrhosis. Core needle liver biopsy was undertaken. We attempted to trace the patient's known gastric bypass anatomy as my partner passed the EGD scope down into the gastric pouch and into the Arely limb. The lay out of the Arely limb and small bowel did not make anatomic sense and adhesiolysis was undertaken. Eventually we discovered that the patient had an internal hernia. Due to the density and diffuse nature of the patient's intra- abdominal adhesions from omentum to small bowel and colon as well as interloop adhesions greater than 2 hours was spent in total lysing adhesions and reducing the patient's internal hernia. Eventually we were able to get the anatomy to lay out appropriately. It was clear that there were moments when the patient had significant vascular congestion due to the omental twisting associated with the internal hernia. Once released the bowel was pink and viable and healthy without any sign of any problem. We then turned our attention to lysing adhesions on the undersurface of the liver between the liver and the area of the gastric bypass pouch. This was in an attempt to explore the anatomy associated with the potential hiatal hernia. These adhesions were lysed and we worked our way back towards the hiatus eventually discovering thick white band like material in the area of the gastro oesophageal junction. This foreign material was removed as two large strips and sent for pathologic inspection. We also noted several white plaques on the omentum throughout the abdomen and sent a sample for pathologic inspection as well. We turned our attention back to the area of the gastric bypass anatomy but at this point the patient had been under anesthesia for almost 3-1/2 hours. Given her high BMI, history of cardiac arrhythmia and otherwise moderate to high potential for intraoperative and perioperative risks we decided not to proceed with any further surgery. One last look with the EGD scope revealed insufflation of the remnant stomach. This is inappropriate in a traditional gastric bypass and this led to the discovery of a gastrogastric fistula. It appears to be located in the area of the posterior wall of the gastric pouch adj acent to the anastomosis closer to the lesser curve side of the stomach appeared. The fistula was large enough to insufflate the stomach and then desufflate the remnant stomach utilizing the EGD scope however we could not visualize a two fistula tract with a which to drive the scope into the remnant stomach. In order to fix this issue the patient would have had to have resection of a portion of the gastric pouch and anastomosis with closure of the remnant stomach gastrotomy and revision of the anastomosis. This was not safe for the patient after such a long anesthesia time and so we will defer this to a later operation. At the end of the case all instrument counts were verified as correct including needles and sponges and the patient tolerated the procedure well. MAGUI LEHMAN MD Jul 22, 2025 16:53
--- NOTE | 2025-07-22 17:40 | NUR ---
PT ARRIVAL TO UNIT PATIENT ARRIVED ON UNIT. THE PATIENT WAS IN NO APPARENT DISTRESS AT THIS TIME.
[2025-07-22] MEDS: SUGAMMADEX SODIUM 200 MG/2 ML VIAL IV ONE ×2 (18:17)
[2025-07-22] MEDS: CLINDAMYCIN IVPB 900MG/50ML 50 ML IV ONE (18:18)
[2025-07-22] MEDS: 0.9%NACL 1000ML 1,000 ML IV ONE (18:18)
[2025-07-22] MEDS: ENOXAPARIN SODIUM 60 MG/0.6 ML SQ SCH (18:26)
[2025-07-22] MEDS: LACTATED RINGERS 1000ML 1,000 ML IV SCH (18:26)
[2025-07-22] MEDS: FAMOTIDINE 20MG VIAL IV SCH (20:00)
[2025-07-22] MEDS: DRONEDARONE HYDROCHLORIDE 400 MG TABLET PO SCH (20:01)
[2025-07-22] MEDS: HYDROcod/acetaMINOPHEN 7.5/325 MG 15 ML UDCUP PO PRN (23:46)
[2025-07-23] VITALS (8 sets, daily range): BP systolic 134–157; BP diastolic 66–76; PULSE 57–74; RESP 17–20; TEMP 97.4–98.5; O2SAT 97–99
[2025-07-23] MEDS: VERAPAMIL HCL 240 MG SRTAB PO SCH (08:43)
[2025-07-23] MEDS: ASPIRIN 81 MG EC TAB PO SCH (08:43)
--- NOTE | 2025-07-23 10:44 | NUR ---
Nutritional Note: Chart, meds, and labs Reviewed. Pt s/p op day one from lysis of adhesions, core liver biopsy, reduction of hiatal hernia. Pt diet advanced to clear liquid. Pt tolerating diet no issues reported. Pt reported having gastric bypass 10yrs ago and follows regular DM II diet at home. Pt reported last HA1C 4.9% and follows up with MD regularly. Recommend: -Advance diet as tolerated to GI soft 75gm CC diet. -ProStat BID (30 ml) JELLO Which will aid in wound healing. Balance protein calorie intake to promote wound healing. This provides 3.3 mg L-arginine, 15 gm protein and 100 kcal per 30 ml -Zinc Sulfate 220mg BID, Vit C 500mg BID, and MVI - Electrolyte replacements per protocol -Monitor feeding tolerance, %, wt, and labs -Document PO intake and wt daily. -If No BM >3days consider bowel stimulant. -Consider appetite stimulant if intake remains <75%for 3 days. -Schedule outpatient RD f/u for long-term nutrition care. - Notify RD if additional nutrition concerns arise. SEE RD Nutritional Assessment for additional assessment information. Addendum: 07/23/25 at [address] Amended: Links added.
--- NOTE | 2025-07-23 10:53 | NUR ---
DCP:HOME Pt currently lives at home with her [place]. Pt does have a wheelchair at home. Pt does have a provider that goes to her home daily from 8-12:30pm to assist with all ADLs, home management, and meals. PCP is Dr. Acosta Gerber and uses [facility] for any RX needs. At [place] pt will want to go home and family can assist with transportation. Addendum: 07/23/25 at 1056 by CORAZON PERDUE SS Amended: Links added.
[2025-07-23] MEDS ORDERED: DIATR MEGLU/DIATRIZOATE SODIUM 30 ML BOTTLE ONE (16:02)
--- NOTE | 2025-07-23 18:03 | PN ---
GENERAL SURGERY PROGRESS NOTE Date/Time Patient Seen: [ ] Problem List: [ Morbid obesity hx gastric bypass GERD Dyspepsia Abdominal pain] Interval History: [Patient is s/p robotic assisted diagnostic lap, VINAY, , core needle biopsy, excisional biopsy of omental plaques, removal of foreign body in the area of the GE junction, reduction of internal hernia, and diagnostic EGD with the discovery of gastrogastric fistula. Patient has tolerated clear fluids, without any nausea or vomiting. Her bilateral breath sounds are clear. Abdomen is soft and nondistended. Active bowel sounds are present. She has been able to void. Reports passing flatus. And has been able to ambulate. Encouraged ambulation, and IS exercises. Plan for discharge tomorrow. She verbalized understanding and agreement. Current Medications Medications (Trade) Dose Ordered Sig/Negin Route Start Time Stop Time Status Last Admin Dose Admin Aspirin (Aspirin 81mg Ec Tab) 81 mg AM PO 07/23/25 09:00 08/22/25 08:59 07/23/25 08:43 81 MG Dronedarone (Multaq) 400 mg BID PO 07/22/25 21:00 08/21/25 20:59 07/23/25 08:43 400 MG Enoxaparin Sodium (Lovenox 60mg) 60 mg Q12H SQ 07/22/25 17:00 08/21/25 16:59 07/23/25 17:11 60 MG Famotidine (Pepcid 20mg Vial) 20 mg BID IV 07/22/25 21:00 08/21/25 20:59 07/23/25 08:42 20 MG Lactated Ringer's 1,000 ml @ 150 mls/hr Q6H40M IV 07/22/25 16:30 08/21/25 16:29 07/23/25 12:35 150 MLS/HR Verapamil HCl (Calan Sr/ Isoptin Sr) 120 mg DAILY PO 07/23/25 09:00 08/22/25 08:59 07/23/25 08:43 120 MG Physical Examination: GEN: Awake, alert, oriented in person, time and place, and in no acute distress. HEENT: No rhinorrhea. Oral mucosa is pink, moist and within normal limits. CHEST: Lung auscultation revealed normal breath sounds bilaterally. CARDIAC:Heart sounds are regular. ABD: Soft, non-tender and not distended. No peritoneal signs on palpation. Normal bowel sounds. 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 Passing flatus EXT: No cyanosis or clubbing. No edema. SKIN: Intact. No rashes. NEURO: Alert and oriented to name, place and person.No focal motor deficits. Normal speech. Vital Signs (last 8hr) Date Time Temp Pulse Resp B/P (MAP) Pulse Ox O2 Delivery O2 Flow Rate FiO2 07/23/25 16:00 97.9 63 18 134/74 97 Room Air 07/23/25 12:00 97.5 61 18 136/73 97 Room Air Laboratory: [ ] Chemistry Labs: Test 07/23/25 16:20 Range/Units Whole Blood Glucose 102 70-110 MG/DL Diagnostics / Radiology: [Copy/Paste Echos/Imaging Report here] Impression and Plan: [ Morbid obesity hx gastric bypass GERD Dyspepsia Abdominal pain Gastric fistula Plan encourage ambulation Encourage I/s exercises Pain meds as needed Antiemetics prn and report any emesis Plan for disposition in the next 24-[address] abd/pelvis without contrast. TANNER HOOVER Jul 23, 2025 18:03
[2025-07-24] VITALS: BP 126/61; PULSE 63; RESP 18; TEMP 97.4
[2025-07-24 04:00] VITALS: BP 156/74; PULSE 59; RESP 18; TEMP 97.9
--- NOTE | 2025-07-24 07:53 | PN ---
GENERAL SURGERY PROGRESS NOTE Date/Time Patient Seen: [ July 24, 2025.] Problem List: [ Morbid obesity hx gastric bypass GERD Dyspepsia Abdominal pain] Interval History: [Patient is s/p robotic assisted diagnostic lap, VINAY, , core needle biopsy, excisional biopsy of omental plaques, removal of foreign body in the area of the GE junction, reduction of internal hernia, and diagnostic EGD with the discovery of gastrogastric fistula. The patient has been doing well, tolerating clear liquids, she has no complaints. Current Medications Medications (Trade) Dose Ordered Sig/Negin Route Start Time Stop Time Status Last Admin Dose Admin Aspirin (Aspirin 81mg Ec Tab) 81 mg AM PO 07/23/25 09:00 08/22/25 08:59 07/23/25 08:43 81 MG Dronedarone (Multaq) 400 mg BID PO 07/22/25 21:00 08/21/25 20:59 07/23/25 21:18 400 MG Enoxaparin Sodium (Lovenox 60mg) 60 mg Q12H SQ 07/22/25 17:00 08/21/25 16:59 07/24/25 06:09 60 MG Famotidine (Pepcid 20mg Vial) 20 mg BID IV 07/22/25 21:00 08/21/25 20:59 07/23/25 21:17 20 MG Lactated Ringer's 1,000 ml @ 150 mls/hr Q6H40M IV 07/22/25 16:30 08/21/25 16:29 07/24/25 04:41 150 MLS/HR Verapamil HCl (Calan Sr/ Isoptin Sr) 120 mg DAILY PO 07/23/25 09:00 08/22/25 08:59 07/23/25 08:43 120 MG Physical Examination: GENERAL: [No acute distress.] HEAD: [Normal with no signs of head trauma.] EYES: [PERRLA, EOMI, conjunctiva and sclera normal.] ENT: [Hearing grossly intact, normal oropharynx.] NECK: [Supple without JVD. There is no tenderness, lymphadenopathy, or masses. No thyromegaly. Normal carotid upstrokes without bruits.] LUNGS: [Clear breath sounds bilaterally. There are right basilar rales one third of the way up the chest. No wheezes, or rhonchi.] HEART: [Normal rate and rhythm. Normal S1 and S2 without mumurs, gallop or rub.] VASC: [Peripheral pulses +2 bilaterally.] ABD: [Bowel sounds normal, soft, nontender, no masses, no organomegaly. No audible bruits.] : [Not examined] LYMPH: [No lymphadenopathy noted.] EXT: [No clubbing, cyanosis or edema.] SKIN: [No rashes or lesions noted.] NEURO: [Awake, alert, and oriented x3. No focal sensory or strength deficits noted.] Vital Signs (last 8hr) Date Time Temp Pulse Resp B/P (MAP) Pulse Ox O2 Delivery O2 Flow Rate FiO2 07/24/25 04:00 97.9 59 18 156/74 96 Room Air 07/24/25 00:00 97.3 63 18 126/61 96 Room Air Laboratory: [ ] Chemistry Labs: Test 07/24/25 04:52 Range/Units Whole Blood Glucose 92 70-110 MG/DL Diagnostics / Radiology: [Copy/Paste Echos/Imaging Report here] Impression and Plan: [ Morbid obesity hx gastric bypass GERD Dyspepsia Abdominal pain Gastric fistula Plan The patient has been doing well. She has no complaints. Her exam is benign. She has met criteria for discharge. Alarm times explained in detail to the patient all questions answered. MIGUEL BERGERON MD Jul 24, 2025 07:53
[2025-07-24 08:00] VITALS: BP 143/75; PULSE 65; RESP 18; TEMP 98.4
[2025-07-24 09:12] VITALS: O2SAT 94
--- NOTE | 2025-07-24 10:01 | NUR ---
removal iv cath dressing to removal site renetta well dc instructions given verbal understanding dc paper signed
--- NOTE | 2025-07-24 10:40 | NUR ---
escorted via [facility] to front of hospital dc hm stable cond
--- NOTE | 2025-07-24 10:44 | HMCIMG ---
CT ABDOMEN/PELVIS W/O CONTRAST REASON: PAIN COMPARISON: None. The study was obtained with oral contrast without IV contrast. FINDINGS: Lung bases demonstrate bibasal atelectasis. The heart appears to be normal. There is coronary calcification suggesting of coronary artery disease. The pericardium appears to be normal. There are no focal liver lesions. There are normal-appearing kidneys.. Spleen and pancreas appear unremarkable. The gallbladder appears to be surgically absent with clips in the gallbladder fossa.. Bowel loops appear unremarkable. The small and large bowels are well opacified with oral contrast. There are occasional diverticulosis with no evidence of diverticulitis. This includes normal appearance of the appendix There is no evidence of free fluid or intraperitoneal air. There are no focal fluid collections. The retroperitoneum appear normal as do pelvic soft tissue structures. The abdominal aorta demonstrate no evidence of residual dilatation. There are bilateral iliac vein stents in place. The anterior abdominal wall is intact. Osseous structures appear unremarkable there is osteoarthritic changes and degenerative change of the lumbar spine. The uterus is not seen suggesting is surgically absent. Right lateral abdominal wall there is subcutaneous air from recent injection there is fat stranding suggesting of cellulitis.. There is left-sided anterior abdominal wall subcutaneous air with fat stranding. This may be some sites of prior subcutaneous injection. IMPRESSION: 1. No acute process seen on CT of the abdomen and pelvis without IV contrast with oral contrast. There is subcutaneous abdominal wall and air with fat stranding from prior injection. Coronary calcification suggesting of coronary artery disease. CT was performed with one or more following dose reduction techniques: automated exposure control, adjustment of the mA and kv according to patient's size, or use of a iterative reconstruction technique.
== END 2025-07-24 10:50 | disposition home or self-care (01) | DRG 326 ==
LOC: DAHIP 07-22 09:18 → 4DH 07-22 17:46
PROVIDERS: ADMIT Surgery; ATTEND Surgery
PROC: 0WQF4ZZ Repair Abdominal Wall, Percutaneous Endoscopic Approach (ICD-10-PCS; 2025-07-22)
PROC: 0DC Gastrointestinal System, Extirpation (ICD-10-PCS; 2025-07-22)
PROC: 0DJ08ZZ Inspection of Upper Intestinal Tract, Via Natural or Artificial Opening Endoscopic (ICD-10-PCS; 2025-07-22)
PROC: 0DNU4ZZ Release Omentum, Percutaneous Endoscopic Approach (ICD-10-PCS; 2025-07-22)
PROC: 0DQV4ZZ Repair Mesentery, Percutaneous Endoscopic Approach (ICD-10-PCS; 2025-07-22)
PROC: 0DNE4ZZ Release Large Intestine, Percutaneous Endoscopic Approach (ICD-10-PCS; 2025-07-22)
PROC: 0DN84ZZ Release Small Intestine, Percutaneous Endoscopic Approach (ICD-10-PCS; 2025-07-22)
PROC: 8E0W4CZ Robotic Assisted Procedure of Trunk Region, Percutaneous Endoscopic Approach (ICD-10-PCS; principal; 2025-07-22 12:35)
PROC: 0FB04ZX Excision of Liver, Percutaneous Endoscopic Approach, Diagnostic (ICD-10-PCS; 2025-07-22 12:35)
PROC: 0DBU4ZX Excision of Omentum, Percutaneous Endoscopic Approach, Diagnostic (ICD-10-PCS; 2025-07-22 12:35)
DX: K66.0 Peritoneal adhesions (postprocedural) (postinfection) (principal); K56.2 Volvulus; K31.6 Fistula of stomach and duodenum; Z68.43 Body mass index [BMI] 50.0-59.9, adult; T18.8XXA Foreign body in other parts of alimentary tract, initial encounter; E66.01 Morbid (severe) obesity due to excess calories; K44.9 Diaphragmatic hernia without obstruction or gangrene; K21.9 Gastro-esophageal reflux disease without esophagitis; K46.9 Unspecified abdominal hernia without obstruction or gangrene; K74.60 Unspecified cirrhosis of liver; I48.91 Unspecified atrial fibrillation; Z98.84 Bariatric surgery status
CPT/HCPCS: 36415; 43235; 74176; 80053; 82948; 85025; 85610; 85730; 86850; 86900; 86901; 88300; 88305; 88307; 88313; 93005; G0378; J0330; J0690; J0780; J1100; J1171; J1650; J1885; J2003; J2250; J2405; J2704; J3010; J3490; J7030; J7120; Q9963; A4213; A4215; A4216; A4221; A4222; A4223; A4600; A4663; A4930; A6260; J0665; J1308